=== PATIENT | male | born 1980 | race Two or more races ===

== ENCOUNTER 2023-12-18 07:22 | Emergency (ER) | payer OTHER ==
[~2023-12-18] VITALS: Ht 167.6 cm; Wt 81.6 kg
[2023-12-18] MEDS ORDERED: FAMOTIDINE/PF 20 MG in 0.9 % SODIUM CHLORIDE 8 ML IV PUSH STA (08:27)
[2023-12-18] MEDS ORDERED: METOCLOPRAMIDE HCL 10 MG in DEXTROSE 5 % IN WATER 50 ML IV ONE (08:30)
[2023-12-18] MEDS ORDERED: 0.9 % SODIUM CHLORIDE 1,000 ML IV SCH (08:30)
[2023-12-18 09:23] LABS: HEMATOCRIT 45.7 % (39.0-48.0); HEMOGLOBIN 16.1 g/dL (13-16.00); MEAN CELL VOLUME 87.3 fL (80.0-100.00); MEAN CORPUSCULAR HEMOGLOBIN 30.7 pg (27.00-32.0); MEAN CORPUSCULAR HGB CONC 35.2 g/dl (32.0-36.0); PLATELET COUNT 222 K/uL (150-450); RED BLOOD COUNT 5.24 M/uL (4.00-6.00)
[2023-12-18 09:42] LABS: ALBUMIN 3.9 gm/dL (3.4-5.0); BILIRUBIN TOTAL 1.27 mg/dL (0.3-1.2); BILIRUBIN,CONJUGATED 0.23 mg/dL (0.0-0.2); BILIRUBIN,UNCONJUGATED 1.04 mg/dL (0.0-0.6); CALCIUM 9.5 mg/dL (8.5-10.1); CREATININE SERUM 0.74 mg/dL (0.70-1.30); GFR 115.44; GLOBULINA 4.1 G/DL (2.4-3.5); POTASSIUM 4.65 mEq/L (3.5-5.1)
[2023-12-18] MEDS ORDERED: PEPCID AC20 MG PO (11:04)
[2023-12-18] MEDS ORDERED: LEVSIN/SL0.125 MG SL (11:04)
== END 2023-12-18 11:14 | disposition home or self-care (01) ==
LOC: ER 07:23
PROVIDERS: General Practice
DX: K29.70 Gastritis, unspecified, without bleeding (principal)